=== PATIENT | male | born 2000 | race African-American/Black ===

== ENCOUNTER → 2020-06-27 | Outpatient (CLI) | payer OTHER ==
[2020-06-27] MEDS: GADOTERATE 7.5 MMOL/15ML VIAL. IVP ONE (14:36)
--- NOTE | 2020-06-28 10:55 | KCIC ---
MRI BRAIN WO+W Date: 06/27/2020 1:55 PM Indication: EPIDERMOID. Follow up to previous cyst removal. Some Joy's Comparison: CT head 06/18/2020. Technique: Multiplanar multisequence MRI of the brain was performed with and without intravenous cont rast using the standard protocol. 15 cc Clariscan contrast was administered intravenously during the exam. Findings: Postsurgical changes of right medial frontal craniotomy. Operative tract extends inferiorly along the interhemispheric fissure to the third ventricle. At the inferior aspect of the operative pathway and at the superior has been of the third ventricle is a nonenhancing cystic space without DWI hyperinte nsity measuring 1.8 x 1.4 x 1.6 cm (AP by TV by CC). Mass effect on the lateral ventricles just proxi mal to the foramen of Vicente. Lateral ventricles are not dilated. No acute infarct. No acute emorrhage. No abnormal enhancement. The scalp and calvarium are normal. The pituitary and sella are normal. No Chiari malformation. The v isualized upper cervical spine is normal. The visualized orbits and globes are normal. The visualized paranasal sinuses are clear. The mastoid air cells are clear. Normal flow voids within the vertebral, basilar, and internal carotid arteries indicating patency. IMPRESSION: Postsurgical changes of right medial frontal craniotomy for lesion resection. Cystic space measuring 1.8 cm at the superior aspect of the third ventricle has no DWI hyperintensity to suggest residual ep idermoid cyst, and may represent a resection cavity. This cystic space exerts mass effect on the late ral ventricles by the foramen of Vicente, with no lateral ventricle dilatation. Electronically signed by: Ernesto Francois MD (06/28/2020 10:53 AM) [id number]
== END ==
LOC: KCIC MRI 13:40
PROVIDERS: ATTEND Physician Assistant
DX: G93.0 Cerebral cysts (principal); L72.0 Epidermal cyst
CPT/HCPCS: 70553; A9575